=== PATIENT | female | born 1955 | race Caucasian/White ===

== ENCOUNTER 2023-01-26 06:35 | Observation (INO) ==
[2023-01-26 06:49] VITALS: BMI 37.2
--- NOTE | 2023-01-26 06:52 | EKG ---
Test Reason : Syncopy Blood Pressure : */* mmHG Vent. Rate : 54 BPM Atrial Rate : 54 BPM P-R Int : 206 ms QRS Dur : 84 ms QT Int : 478 ms P-R-T Axes : 51 59 60 degrees QTc Int : 453 ms Sinus bradycardia Nonspecific ST abnormality Abnormal ECG No previous ECGs available Confirmed by Guilherme John ([id number]) on 01/26/2023 8:00:39 AM Referred By: Confirmed By: Guilherme John
[2023-01-26 07:15] LABS: BASOPHILS % (AUTO) 0.6 % (0.2-1.0); EOSINOPHILS # (AUTO) 0.1 x10^3/uL (0.0-0.2); HEMATOCRIT 38.4 % (36.0-47.0); HEMOGLOBIN 13.3 g/dL (12.0-16.0); LYMPHOCYTES # (AUTO) 1.1 X10^3/uL (1.3-2.9); LYMPHOCYTES % (AUTO) 19.2 % (21.0-51.0); MEAN CORPUSCULAR HEMOGLOBIN 28.7 pg (27.0-34.0); MEAN CORPUSCULAR HGB CONC 34.6 g/dL (33.0-35.0); MEAN CORPUSCULAR VOLUME 83.2 fL (80.0-100.0); MEAN PLATELET VOLUME 7.8 fL (7.4-11.0); MONOCYTES # (AUTO) 0.4 x10^3/uL (0.3-0.8); MONOCYTES % (AUTO) 6.1 % (0.0-13.0); NEUTROPHILS # (AUTO) 4.3 x10^3/uL (2.2-4.8); NEUTROPHILS % (AUTO) 73.1 % (42.0-75.0); PLATELET COUNT 186 X10^3/uL (150.0-450.0); RED BLOOD COUNT 4.62 X10^6/uL (3.5-5.4); WHITE BLOOD COUNT 5.9 X10^3/uL (3.6-10.0)
[2023-01-26 07:25] LABS: ALBUMIN 3.3 g/dL (3.4-5.0); CALCIUM 8.7 mg/dL (8.5-10.1); CARBON DIOXIDE 25.1 mmol/L (21-32); COR CA(FOR HYPOALB) 9.3 mg/dL (8.5-10.1); CREATININE 1.42 mg/dL (0.55-1.02); POTASSIUM 3.8 mmol/L (3.5-5.1); TOTAL PROTEIN 6.8 g/dL (6.4-8.2)
--- NOTE | 2023-01-26 07:46 | DR.DIZZY ---
HPI Time seen Time Seen by Provider: 01/26/23 06:35 PCP Primary Care Physician: Mckenzie Overton Complaint Chief Complaint:: Pt states that this morning she woke up and sat up on the side of the bed and immediately felt dizzy and passed out. Pt woke up in the floor and rolled over and tried to sit up again and when sitting or moving her head from side to side she immediately felt dizzy again like she might pass out. Pt is noted to have a small abrasion to the side of the right eye. Denies any pain. COVID-19 Coronavirus risk:travel/contact w/high risk person: No Has patient experienced Coronavirus symptoms: No Nurses Notes Reviewed Nurses Notes Review: Yes Source History Provided: Patient Mode of Arrival Mode of Arrival: EMS Timing Onset of Chief Complaint: 01/26/23 Came on: Suddenly Symptom Onset: Known Duration How lon Duration: Minutes Location of Weakness Weakness Location: Generalized Context Onset: At rest Does pt take pot. toxic medication?: No History of: None Stroke Symptoms: None Associated signs and symptoms Associated Signs and Symptoms: Normal PMH PMH Past Medical History: Yes Past Medical History: Dyslipidemia and Hypertension Past Medical History Comment: afib, three leaky heart valves Past Surgical History: Yes Surgical History: Cholecystectomy, Hysterectomy and Joint Replacement Past Surgical History Comment: left tka, cyst removed from right breast x 4 Family History History of Family Medical Conditions: Yes Family Medical History: Diabetes Mellitus, Cancer, [place], Coronary Artery Disease and Hypertension Social History Does patient currently use any type of tobacco product: No Have you used tobacco products in the last 12 months: No Type of Tobacco Use: None Does any household member use tobacco: No Alcohol Use: None Do you use any recreational Drugs:: No Lives With: Spouse Lives Where: Home Travel Risk Coronavirus risk:travel/contact w/high risk person: No Has patient experienced Coronavirus symptoms: No Infectious screening In the last 2 months have you had wt loss of >10#?: NO Have you had fever, night sweats or hemotysis?: No Have you traveled outside the country in the last 6 months?: No Isolation: Standard ROS Review of Systems Neurological: See HPI PE Vital Signs Vitals: Vital Signs Temperature 97.7 F Pulse Rate [Sitting] 55 Pulse Rate [Lying] 52 Pulse Rate 56 Pulse Rate 54 Pulse Rate 51 Pulse Rate 51 Pulse Rate 50 Pulse Rate 52 Pulse Rate 54 Respiratory Rate 26 Respiratory Rate 7 Respiratory Rate 22 Respiratory Rate 22 Respiratory Rate 27 Respiratory Rate 23 Respiratory Rate 20 Blood Pressure [Sitting] 198/93 Blood Pressure [Lying] 165/77 Blood Pressure 198/93 Blood Pressure 165/77 Blood Pressure 160/74 Blood Pressure 194/81 O2 Sat by Pulse Oximetry 100 O2 Sat by Pulse Oximetry 99 O2 Sat by Pulse Oximetry 98 O2 Sat by Pulse Oximetry 96 O2 Sat by Pulse Oximetry 98 O2 Sat by Pulse Oximetry 97 O2 Sat by Pulse Oximetry 99 O2 Sat by Pulse Oximetry 100 General Limitations: No Limitations General Appearance: Alert and In No Apparent Distress Head Head Exam: Normocephalic and Other Eyes Eye exam: Normal Appearance, PERRL and EOMI ENT ENT Exam: Normal Exam, Normal Oropharynx and Normal External Ear Exam Neck Neck Exam: Normal Inspection, Full ROM and Trachea Midline Chest Chest Inspection: Normal Inspection Respiratory Respiratory Exam: Normal Lung Sounds Bilat Cardiovascular Cardiovascular Exam: Regular Rate and Bradycardia Abdominal Exam Abdominal Exam: Normal Inspection, Normal Bowel Sounds and Soft Rectal Rectal Exam: Deferred Extremeties Extremities Exam: Normal Inspection and Full ROM Back Back Exam: Normal Inspection and Full ROM Neurologic Neurological Exam: Alert, Oriented X3, CN II-XII Intact and Reflexes Normal Patient Oriented To: Person, Place and Time Speech: Fluid Speech Psychiatric Psychiatric Exam: Normal Affect and Normal Mood Skin Skin Exam: Warm, Dry and Intact ROR Labs Reviewed 01/26/23 06:58 01/26/23 06:58 Laboratory: WBC 5.9 X10^3/uL (3.6-10.0) 01/26/23 06:58 RBC 4.62 X10^6/uL (3.5-5.4) 01/26/23 06:58 Hgb 13.3 g/dL (12.0-16.0) 01/26/23 06:58 Hct 38.4 % (36.0-47.0) 01/26/23 06:58 MCV 83.2 fL (80.0-100.0) 01/26/23 06:58 MCH 28.7 pg (27.0-34.0) 01/26/23 06:58 MCHC 34.6 g/dL (33.0-35.0) 01/26/23 06:58 RDW 14.0 % (11.6-16.5) 01/26/23 06:58 Plt Count 186 X10^3/uL (150.0-450.0) 01/26/23 06:58 MPV 7.8 fL (7.4-11.0) 01/26/23 06:58 Neut % (Auto) 73.1 % (42.0-75.0) 01/26/23 06:58 Lymph % (Auto) 19.2 % (21.0-51.0) L 01/26/23 06:58 [place] % (Auto) 6.1 % (0.0-13.0) 01/26/23 06:58 Eos % (Auto) 1.0 % (0.9-2.9) 01/26/23 06:58 Baso % (Auto) 0.6 % (0.2-1.0) 01/26/23 06:58 Neut # (Auto) 4.3 x10^3/uL (2.2-4.8) 01/26/23 06:58 Lymph # (Auto) 1.1 X10^3/uL (1.3-2.9) L 01/26/23 06:58 [place] # (Auto) 0.4 x10^3/uL (0.3-0.8) 01/26/23 06:58 Eos # (Auto) 0.1 x10^3/uL (0.0-0.2) 01/26/23 06:58 Baso # (Auto) 0.0 X10^3/uL (0.0-0.1) 01/26/23 06:58 Absolute Nucleated RBC 0.0 /100WBC 01/26/23 06:58 Sodium 142 mmol/L (136-145) 01/26/23 06:58 Corrected Sodium 142 mmol/L (136-145) 01/26/23 06:58 Potassium 3.8 mmol/L (3.5-5.1) 01/26/23 06:58 Chloride 106 mmol/L (98-107) 01/26/23 06:58 Carbon Dioxide 25.1 mmol/L (21-32) 01/26/23 06:58 BUN 29 mg/dL (7-18) H 01/26/23 06:58 Creatinine 1.42 mg/dL (0.55-1.02) H 01/26/23 06:58 Est GFR (MDRD) Af Amer 48 (>60) L 01/26/23 06:58 Est GFR (MDRD) Non-Af 39 (>60) L 01/26/23 06:58 Glucose 114 mg/dL (65-99) H 01/26/23 06:58 Calcium 8.7 mg/dL (8.5-10.1) 01/26/23 06:58 Corrected Calcium 9.3 mg/dL (8.5-10.1) 01/26/23 06:58 Total Bilirubin 0.40 mg/dL (0.2-1.0) 01/26/23 06:58 AST 17 Units/L (15-37) 01/26/23 06:58 ALT 28 Units/L (12-78) 01/26/23 06:58 Alkaline Phosphatase 103 Units/L (46-116) 01/26/23 06:58 Troponin I High Sens 9.9 ng/L (4.0-60.0) 01/26/23 06:58 Total Protein 6.8 g/dL (6.4-8.2) 01/26/23 06:58 Albumin 3.3 g/dL (3.4-5.0) L 01/26/23 06:58 Globulin 3.5 g/dL (2.5-4.5) 01/26/23 06:58 Albumin/Globulin Ratio 0.9 Ratio (1.1-2.1) L 01/26/23 06:58 Opioid Opioid Risk Tool Age (Jaime box if 16-45): No History of Preadolescent Sexual Abuse: No Total: 0 Total Score Risk Category: Low Risk Copyright: Ayden LITTLE predicting aberrant behaviors Discharge Plan Discharge Plan Patient Disposition: HOME, SELF-CARE Condition: Stable Prescriptions: No Action atorvastatin 10 mg tablet 10 mg PO QHS Qty: 30 0RF lisinopril-hydrochlorothiazide 10-12.5 mg tablet 1 tab PO QAM Qty: 30 0RF allopurinol 100 mg tablet 200 mg PO QDAY Qty: 60 0RF Hydrocodone-Acetaminophen [Lorcet Plus (D/C per FDA)] 1 TAB Tab 7.5 - 500 mg PO Q4H PRN (Reason: Pain) Qty: 20 0RF Rx Instructions: ONE TABLET EVERY 4 HOURS NEEDED FOR PAIN fenofibrate micronized 134 mg capsule 134 mg PO DAILY Qty: 14 0RF zinc 50 mg tablet 220 mg PO QID Qty: 14 0RF Rx Instructions: administer on empty stomach, at least 1 hour before or after meal(s) use one 220 mg tab thiamine HCl (vitamin B1) 100 mg tablet 100 mg PO DAILY Qty: 14 0RF Rx Instructions: please also provide pt aixa Vit d# 5,000 IU 1 po daily for 14 days minimum famotidine [Pepcid] 40 mg tablet 40 mg PO DAILY Qty: 14 0RF ondansetron HCl [Zofran] 4 mg tablet 4 mg PO Q6H PRNQty: 14 0RF Health Concerns: Post Hospitalization: new medications and changes needed to prevent readmission or further decline. Pt educated and given instructions on all concerns. Plan of Treatment: Continue with present treatment and follow up plan. Pt is to keep follow up appointment as instructed and take medications as ordered. Follow ups/Referrals Follow ups/Referrals: Mckenzie Overton [Primary Care Provider] - 3 days Instructions Stand Alone Forms: Post Hospital Follow Up Care
[2023-01-26] MEDS ORDERED: CATAPRES TAB 0.2 MG ONE (07:51)
[2023-01-26] MEDS ORDERED: CATAPRES TAB 0.2 MG PO ONE (07:51)
--- NOTE | 2023-01-26 08:00 | CT ---
HISTORYDizziness, syncope, head injurySTUDYCT head without contrastTechnique: Axial noncontrast images with coronal and sagittal reformats. Dose reduction procedures were used with mA/kv adjusted for body size.COMPARISONNoneFINDINGSVentricles are normal in size shape and position. There is mild cortical atrophy present likely age related. There are no focal areas of abnormal attenuation to suggest recent or remote CVA, hemorrhage, contusion, mass lesion, or extra-axial fluid collection. The visualized sinuses are clear. The calvarium is intact.IMPRESSIONNo acute intracranial abnormality identifiedMild cortical atrophy likely age relatedElectronically signed by: EVON HOOVER (Jan 26, 2023 07:58:24)
--- NOTE | 2023-01-26 08:04 | RAD ---
EXAM:CHEST, 1 VIEWHISTORY:syncopeCOMPARISON:08/22/2021 FINDINGS:The cardiomediastinal silhouette is stable.No acute airspace disease. No pneumothorax or effusion.No acute osseous abnormality.IMPRESSION:No acute cardiopulmonary disease.THIS IS AN ELECTRONICALLY VERIFIED FINAL REPORT01/26/2023 8:01 AM - Electronically signed by Tai Schmitz MD
[2023-01-26] MEDS ORDERED: ANTIVERT TAB 25 MG ONE (08:08)
[2023-01-26] MEDS ORDERED: ANTIVERT TAB 25 MG PO ONE (08:08)
[2023-01-26 08:17] LABS: BILIRUBIN,URINE NEGATIVE (NEGATIVE); BLOOD/HEMOGLOBIN,URINE NEGATIVE (NEGATIVE); GLUCOSE, URINE NEGATIVE (NEGATIVE); KETONES,URINE NEGATIVE (NEGATIVE); LEUKOCYTE ESTERASE ,URINE NEGATIVE (NEGATIVE); NITRITES,URINE NEGATIVE (NEGATIVE); PROTEIN,URINE NEGATIVE (NEGATIVE); UROBILINOGEN,URINE NORMAL (NORMAL)
[2023-01-26 08:18] LABS: APPEARANCE,URINE CLEAR (CLEAR); COLOR,URINE YELLOW (YELLOW)
[2023-01-26] MEDS ORDERED: NS 1,000 ML IV 1,000 ML ONE (08:31)
[2023-01-26] MEDS: NS 1,000 ML IV 1,000 ML IV SCH ×2 (08:44→20:25)
--- NOTE | 2023-01-26 09:45 | DR.DIZZY ---
HPI Time seen Time Seen by Provider: 01/26/23 06:35 PCP Primary Care Physician: Mckenzie Overton Complaint Chief Complaint:: Pt states that this morning she woke up and sat up on the side of the bed and immediately felt dizzy and passed out. Pt woke up in the floor and rolled over and tried to sit up again and when sitting or moving her head from side to side she immediately felt dizzy again like she might pass out. Pt is noted to have a small abrasion to the side of the right eye. Denies any pain. COVID-19 Coronavirus risk:travel/contact w/high risk person: No Has patient experienced Coronavirus symptoms: No Nurses Notes Reviewed Nurses Notes Review: Yes Source History Provided: Patient Mode of Arrival Mode of Arrival: EMS Timing Onset of Chief Complaint: 01/26/23 Symptom Onset: Known Location of Weakness Weakness Location: Generalized Context History of: None Associated signs and symptoms Associated Signs and Symptoms: Normal PMH PMH Past Medical History: Yes Past Medical History: Dyslipidemia and Hypertension Past Medical History Comment: afib, three leaky heart valves Past Surgical History: Yes Surgical History: Cholecystectomy, Hysterectomy and Joint Replacement Past Surgical History Comment: left tka, cyst removed from right breast x 4 Family History History of Family Medical Conditions: Yes Family Medical History: Diabetes Mellitus, Cancer, [place], Coronary Artery Disease and Hypertension Social History Does patient currently use any type of tobacco product: No Have you used tobacco products in the last 12 months: No Type of Tobacco Use: None Does any household member use tobacco: No Alcohol Use: None Do you use any recreational Drugs:: No Lives With: Spouse Lives Where: Home Travel Risk Coronavirus risk:travel/contact w/high risk person: No Has patient experienced Coronavirus symptoms: No Infectious screening In the last 2 months have you had wt loss of >10#?: NO Have you had fever, night sweats or hemotysis?: No Have you traveled outside the country in the last 6 months?: No Isolation: Standard PE Vital Signs Vitals: Vital Signs Temperature 97.7 F Pulse Rate [Sitting] 55 Pulse Rate [Lying] 52 Pulse Rate 43 Pulse Rate 42 Pulse Rate 42 Pulse Rate 43 Pulse Rate 42 Pulse Rate 43 Pulse Rate 43 Pulse Rate 44 Pulse Rate 46 Pulse Rate 46 Pulse Rate 48 Pulse Rate 48 Pulse Rate 50 Pulse Rate 49 Pulse Rate 49 Pulse Rate 49 Pulse Rate 50 Pulse Rate 47 Pulse Rate 47 Pulse Rate 48 Pulse Rate 49 Pulse Rate 52 Pulse Rate 51 Pulse Rate 56 Pulse Rate 54 Pulse Rate 51 Pulse Rate 51 Pulse Rate 50 Pulse Rate 52 Pulse Rate 54 Respiratory Rate 18 Respiratory Rate 12 Respiratory Rate 21 Respiratory Rate 15 Respiratory Rate 11 Respiratory Rate 13 Respiratory Rate 12 Respiratory Rate 14 Respiratory Rate 11 Respiratory Rate 13 Respiratory Rate 23 Respiratory Rate 18 Respiratory Rate 16 Respiratory Rate 26 Respiratory Rate 7 Respiratory Rate 22 Respiratory Rate 22 Respiratory Rate 27 Respiratory Rate 23 Respiratory Rate 20 Blood Pressure [Sitting] 198/93 Blood Pressure [Lying] 165/77 Blood Pressure 134/66 Blood Pressure 142/66 Blood Pressure 142/66 Blood Pressure 136/65 Blood Pressure 136/65 Blood Pressure 136/67 Blood Pressure 136/67 Blood Pressure 119/64 Blood Pressure 121/59 Blood Pressure 160/67 Blood Pressure 171/75 Blood Pressure 172/76 Blood Pressure 192/86 Blood Pressure 198/93 Blood Pressure 165/77 Blood Pressure 160/74 Blood Pressure 194/81 O2 Sat by Pulse Oximetry 97 O2 Sat by Pulse Oximetry 98 O2 Sat by Pulse Oximetry 98 O2 Sat by Pulse Oximetry 98 O2 Sat by Pulse Oximetry 99 O2 Sat by Pulse Oximetry 97 O2 Sat by Pulse Oximetry 97 O2 Sat by Pulse Oximetry 98 O2 Sat by Pulse Oximetry 98 O2 Sat by Pulse Oximetry 98 O2 Sat by Pulse Oximetry 97 O2 Sat by Pulse Oximetry 100 O2 Sat by Pulse Oximetry 94 O2 Sat by Pulse Oximetry 96 O2 Sat by Pulse Oximetry 99 O2 Sat by Pulse Oximetry 98 O2 Sat by Pulse Oximetry 100 O2 Sat by Pulse Oximetry 99 O2 Sat by Pulse Oximetry 100 O2 Sat by Pulse Oximetry 97 O2 Sat by Pulse Oximetry 100 O2 Sat by Pulse Oximetry 97 O2 Sat by Pulse Oximetry 96 O2 Sat by Pulse Oximetry 100 O2 Sat by Pulse Oximetry 99 O2 Sat by Pulse Oximetry 98 O2 Sat by Pulse Oximetry 96 O2 Sat by Pulse Oximetry 98 O2 Sat by Pulse Oximetry 97 O2 Sat by Pulse Oximetry 99 O2 Sat by Pulse Oximetry 100 ROR Labs Reviewed 01/26/23 06:58 01/26/23 06:58 Laboratory: WBC 5.9 X10^3/uL (3.6-10.0) 01/26/23 06:58 RBC 4.62 X10^6/uL (3.5-5.4) 01/26/23 06:58 Hgb 13.3 g/dL (12.0-16.0) 01/26/23 06:58 Hct 38.4 % (36.0-47.0) 01/26/23 06:58 MCV 83.2 fL (80.0-100.0) 01/26/23 06:58 MCH 28.7 pg (27.0-34.0) 01/26/23 06:58 MCHC 34.6 g/dL (33.0-35.0) 01/26/23 06:58 RDW 14.0 % (11.6-16.5) 01/26/23 06:58 Plt Count 186 X10^3/uL (150.0-450.0) 01/26/23 06:58 MPV 7.8 fL (7.4-11.0) 01/26/23 06:58 Neut % (Auto) 73.1 % (42.0-75.0) 01/26/23 06:58 Lymph % (Auto) 19.2 % (21.0-51.0) L 01/26/23 06:58 [place] % (Auto) 6.1 % (0.0-13.0) 01/26/23 06:58 Eos % (Auto) 1.0 % (0.9-2.9) 01/26/23 06:58 Baso % (Auto) 0.6 % (0.2-1.0) 01/26/23 06:58 Neut # (Auto) 4.3 x10^3/uL (2.2-4.8) 01/26/23 06:58 Lymph # (Auto) 1.1 X10^3/uL (1.3-2.9) L 01/26/23 06:58 [place] # (Auto) 0.4 x10^3/uL (0.3-0.8) 01/26/23 06:58 Eos # (Auto) 0.1 x10^3/uL (0.0-0.2) 01/26/23 06:58 Baso # (Auto) 0.0 X10^3/uL (0.0-0.1) 01/26/23 06:58 Absolute Nucleated RBC 0.0 /100WBC 01/26/23 06:58 Sodium 142 mmol/L (136-145) 01/26/23 06:58 Corrected Sodium 142 mmol/L (136-145) 01/26/23 06:58 Potassium 3.8 mmol/L (3.5-5.1) 01/26/23 06:58 Chloride 106 mmol/L (98-107) 01/26/23 06:58 Carbon Dioxide 25.1 mmol/L (21-32) 01/26/23 06:58 BUN 29 mg/dL (7-18) H 01/26/23 06:58 Creatinine 1.42 mg/dL (0.55-1.02) H 01/26/23 06:58 Est GFR (MDRD) Af Amer 48 (>60) L 01/26/23 06:58 Est GFR (MDRD) Non-Af 39 (>60) L 01/26/23 06:58 Glucose 114 mg/dL (65-99) H 01/26/23 06:58 Calcium 8.7 mg/dL (8.5-10.1) 01/26/23 06:58 Corrected Calcium 9.3 mg/dL (8.5-10.1) 01/26/23 06:58 Total Bilirubin 0.40 mg/dL (0.2-1.0) 01/26/23 06:58 AST 17 Units/L (15-37) 01/26/23 06:58 ALT 28 Units/L (12-78) 01/26/23 06:58 Alkaline Phosphatase 103 Units/L (46-116) 01/26/23 06:58 Troponin I High Sens 14.8 ng/L (4.0-60.0) 01/26/23 08:45 Total Protein 6.8 g/dL (6.4-8.2) 01/26/23 06:58 Albumin 3.3 g/dL (3.4-5.0) L 01/26/23 06:58 Globulin 3.5 g/dL (2.5-4.5) 01/26/23 06:58 Albumin/Globulin Ratio 0.9 Ratio (1.1-2.1) L 01/26/23 06:58 Specimen Type Catherized urine 01/26/23 07:55 Urine Color Yellow (YELLOW) 01/26/23 07:55 Urine Appearance Clear (CLEAR) 01/26/23 07:55 Urine pH 6.0 (5.0 - 8.0) 01/26/23 07:55 Ur Specific [place] 1.015 (1.000-1.030) 01/26/23 07:55 Urine Protein Negative (NEGATIVE) 01/26/23 07:55 Urine Glucose (UA) Negative (NEGATIVE) 01/26/23 07:55 Urine Ketones Negative (NEGATIVE) 01/26/23 07:55 Urine Blood Negative (NEGATIVE) 01/26/23 07:55 Urine Nitrite Negative (NEGATIVE) 01/26/23 07:55 Urine Bilirubin Negative (NEGATIVE) 01/26/23 07:55 Urine Urobilinogen Normal (NORMAL) 01/26/23 07:55 Ur Leukocyte Esterase Negative (NEGATIVE) 01/26/23 07:55 Opioid Opioid Risk Tool Age (Jaime box if 16-45): No History of Preadolescent Sexual Abuse: No Total: 0 Total Score Risk Category: Low Risk Copyright: Ayden LITTLE predicting aberrant behaviors Discharge Plan Diagnosis Discharge Problem: Syncope, Ataxia Discharge Plan Patient Disposition: ADMITTED INPATIENT Condition: Stable Orders to Discharge Patient Discharge Orders: Transfer (Routine); Ordered 01/26/23 Ordered By: MADELYN MANZO
[2023-01-26] MEDS ORDERED: ADACEL or BOOSTRIX TDaP VACCINE IM ONE ×2 (09:57→09:58)
--- NOTE | 2023-01-26 11:28 | MRI ---
HISTORYsyncopeSTUDYBRAIN W/O CONCOMPARISONCT same dayTECHNIQUEMultiplanar multi-sequence MRI of the brain was obtained utilizing standard departmental protocol. Sagittal and axial T1 weighted images were obtained. Axial T2 and flair weighted images were performed as well. Axial diffusion weighted and ADC trace mapping was performed.FINDINGSThe midline structures appear unremarkable. The evaluation of the brain parenchyma demonstrates no abnormal signal characteristics to suggest intraparenchymal mass or hemorrhage. No extra-axial fluid collections are observed. The ventricular system appears symmetric and nondilated. The CP angle is normal in its appearance without brainstem mass or evidence for acoustic neuroma. The flow voids on both T1 and T2 weighted imaging appear unremarkable. Evaluation of the diffusion weighted imaging does not demonstrate abnormal signal characteristics to suggest acute ischemic change. The extracranial structures are unremarkable.IMPRESSIONUnremarkable MRI of the brain without contrast.Electronically signed by: DARREN MONTANA (Jan 26, 2023 11:19:16)
[2023-01-26] MEDS ORDERED: ANTIVERT TAB 25 MG PO PRN (13:27)
[2023-01-26] MEDS: CORDARONE TAB 200 MG PO SCH (14:14)
[2023-01-26] MEDS: ELIQUIS PO SCH (20:24)
[2023-01-26] MEDS ORDERED: LIPITOR TAB 10 MG PO SCH (21:00)
[2023-01-27] MEDS: NS 1,000 ML IV 1,000 ML IV SCH ×2 (05:07→09:00)
[2023-01-27 05:24] LABS: BASOPHILS % (AUTO) 0.7 % (0.2-1.0); EOSINOPHILS # (AUTO) 0.1 x10^3/uL (0.0-0.2); EOSINOPHILS % (AUTO) 0.7 % (0.9-2.9); HEMATOCRIT 35.6 % (36.0-47.0); HEMOGLOBIN 12.4 g/dL (12.0-16.0); LYMPHOCYTES % (AUTO) 13.8 % (21.0-51.0); MEAN CORPUSCULAR HEMOGLOBIN 29.1 pg (27.0-34.0); MEAN CORPUSCULAR HGB CONC 34.9 g/dL (33.0-35.0); MEAN CORPUSCULAR VOLUME 83.3 fL (80.0-100.0); MEAN PLATELET VOLUME 7.9 fL (7.4-11.0); MONOCYTES # (AUTO) 0.4 x10^3/uL (0.3-0.8); MONOCYTES % (AUTO) 6.3 % (0.0-13.0); NEUTROPHILS # (AUTO) 5.5 x10^3/uL (2.2-4.8); NEUTROPHILS % (AUTO) 78.5 % (42.0-75.0); PLATELET COUNT 205 X10^3/uL (150.0-450.0); RED BLOOD COUNT 4.27 X10^6/uL (3.5-5.4); RED CELL DISTRIBUTION WIDTH 13.7 % (11.6-16.5)
[2023-01-27 05:25] LABS: INR 1.11 (0.8-1.3)
[2023-01-27 05:36] LABS: ALANINE AMINOTRANSFERASE 23 Units/L (12-78); ALKALINE PHOSPHATASE 87 Units/L (46-116); ASPARTATE AMINO TRANSFERASE 16 Units/L (15-37); BLOOD UREA NITROGEN 24 mg/dL (7-18); CALCIUM 8.3 mg/dL (8.5-10.1); CARBON DIOXIDE 27.9 mmol/L (21-32); CHLORIDE 108 mmol/L (98-107); COR CA(FOR HYPOALB) 9.1 mg/dL (8.5-10.1); CREATININE 1.15 mg/dL (0.55-1.02); GLUCOSE 100 mg/dL (65-99); MAGNESIUM 1.9 mg/dL (2.0-2.9); SODIUM 144 mmol/L (136-145); eGFR NON BLACK RACES 50 (>60)
[2023-01-27] MEDS: ELIQUIS PO SCH (08:52)
[2023-01-27] MEDS: CORDARONE TAB 200 MG PO SCH (08:53)
[2023-01-27] MEDS ORDERED: ZYLOPRIM PO SCH (09:00)
[2023-01-27] MEDS ORDERED: ZESTORETIC 10/ 12.5MG PO SCH (09:00)
[2023-01-27 09:17] VITALS: RESP 20
[2023-01-27] MEDS ORDERED: MAG-OX TAB PO SCH (10:00)
[2023-01-27 13:18] VITALS: BP 120/58; PULSE 45; TEMP 97.8; O2SAT 99
--- NOTE | 2023-01-28 13:53 | DR.SSS ---
SHORT STAY SUMMARY Admission Date Date of Admission: 01/26/23 Discharge Date Discharge Date: 01/27/23 Admission Diagnoses Admission Diagnoses: Vertigo Discharge Diagnoses Discharge Diagnoses: Vertigo Chief Complaint Chief Complaint: Vertigo, imbalance Dizziness, lightheaded History of Present Illness History of Present Illness: Pt presenting with vertigo, dizziness, lightheadedness that occurred acutely on day of admission and caused her to have balance problems. Past Medical History Past Medical History: Dyslipidemia and Hypertension Past Surgical History Surgical History: Cholecystectomy, Hysterectomy and Joint Replacement Allergies Allergies Allergy/AdvReac Type Severity Reaction Status Date / Time No Known Drug Allergies Allergy Unknown Verified 01/26/23 07:44 Medications Home Medications: No Known Drug Allergies Allergy (Unknown, Verified 01/26/23 07:44) CONTINUE taking the following medications amiodarone 200 mg tablet 200 mg PO QDAY 01/26/23 [History] apixaban 5 mg tablet (Eliquis) 5 mg PO BID 01/26/23 [History] New Prescriptions meclizine 25 mg tablet 25 mg PO TID PRN 10 days #30 tabs 01/27/23 [Rx] Family History Family Medical History: Diabetes Mellitus, Cancer, NM, Coronary Artery Disease and Hypertension Social History Does patient currently use any type of tobacco product: No Have you used tobacco products in the last 12 months: No Type of Tobacco Use: None Does any household member use tobacco: No Alcohol Use: None Drug Use: None Review of Systems Constitutional: Weakness Eyes: No Symptoms Reported ENT: No Symptoms Reported Respiratory: No Symptoms Reported Cardiovascular: No Symptoms Reported Gastrointestinal: No Symptoms Reported Genitourinary: No Symptoms Reported Musculoskeletal: No Symptoms Reported Skin: No Symptoms Reported Neurological: Other Physical Exam Vital Signs: Last Vital Signs Temp 98.1 F 01/27/23 08:00 Pulse 43 L 01/27/23 08:00 Resp 20 01/27/23 08:00 BP 135/63 01/27/23 08:00 Pulse Ox 100 01/27/23 08:00 O2 Del Method Room Air 01/27/23 08:00 Oriented: Normal Eyes: Normal Ear: Normal Nose: Normal Throat: Normal Respiratory: Clear Throughout Cardiovascular: Normal Auscultation: Bowel Sounds: Normal Palpation: Normal Tenderness: Normal Skin: Normal Musculoskeletal: Normal Psychiatric: Normal Mood Description: Calm Speech Pattern: Clear Labs Labs: Laboratory Last Values WBC 7.0 X10^3/uL (3.6-10.0) 01/27/23 04:36 RBC 4.27 X10^6/uL (3.5-5.4) 01/27/23 04:36 Hgb 12.4 g/dL (12.0-16.0) 01/27/23 04:36 Hct 35.6 % (36.0-47.0) L 01/27/23 04:36 MCV 83.3 fL (80.0-100.0) 01/27/23 04:36 MCH 29.1 pg (27.0-34.0) 01/27/23 04:36 MCHC 34.9 g/dL (33.0-35.0) 01/27/23 04:36 RDW 13.7 % (11.6-16.5) 01/27/23 04:36 Plt Count 205 X10^3/uL (150.0-450.0) 01/27/23 04:36 MPV 7.9 fL (7.4-11.0) 01/27/23 04:36 Neut % (Auto) 78.5 % (42.0-75.0) H 01/27/23 04:36 Lymph % (Auto) 13.8 % (21.0-51.0) L 01/27/23 04:36 [place]er % (Auto) 6.3 % (0.0-13.0) 01/27/23 04:36 Eos % (Auto) 0.7 % (0.9-2.9) L 01/27/23 04:36 Baso % (Auto) 0.7 % (0.2-1.0) 01/27/23 04:36 Neut # (Auto) 5.5 x10^3/uL (2.2-4.8) H 01/27/23 04:36 Lymph # (Auto) 1.0 X10^3/uL (1.3-2.9) L 01/27/23 04:36 Miner # (Auto) 0.4 x10^3/uL (0.3-0.8) 01/27/23 04:36 Eos # (Auto) 0.1 x10^3/uL (0.0-0.2) 01/27/23 04:36 Baso # (Auto) 0.0 X10^3/uL (0.0-0.1) 01/27/23 04:36 Absolute Nucleated RBC 0.0 /100WBC 01/27/23 04:36 PT 14.1 SECONDS (11.8-14.3) 01/27/23 04:36 INR Target Range - 01/27/23 04:36 INR 1.11 (0.8-1.3) 01/27/23 04:36 APTT 30.1 SECONDS (22.9-36.5) 01/27/23 04:36 PTT Comment - 01/27/23 04:36 Sodium 144 mmol/L (136-145) 01/27/23 04:36 Corrected Sodium TNP 01/27/23 04:36 Potassium 4.0 mmol/L (3.5-5.1) 01/27/23 04:36 Chloride 108 mmol/L (98-107) H 01/27/23 04:36 Carbon Dioxide 27.9 mmol/L (21-32) 01/27/23 04:36 BUN 24 mg/dL (7-18) H 01/27/23 04:36 Creatinine 1.15 mg/dL (0.55-1.02) H 01/27/23 04:36 Est GFR (MDRD) Af Amer > 60 (>60) 01/27/23 04:36 Est GFR (MDRD) Non-Af 50 (>60) L 01/27/23 04:36 Glucose 100 mg/dL (65-99) H 01/27/23 04:36 Calcium 8.3 mg/dL (8.5-10.1) L 01/27/23 04:36 Corrected Calcium 9.1 mg/dL (8.5-10.1) 01/27/23 04:36 Magnesium 1.9 mg/dL (2.0-2.9) L 01/27/23 04:36 Total Bilirubin 0.40 mg/dL (0.2-1.0) 01/27/23 04:36 AST 16 Units/L (15-37) 01/27/23 04:36 ALT 23 Units/L (12-78) 01/27/23 04:36 Alkaline Phosphatase 87 Units/L (46-116) 01/27/23 04:36 Troponin I High Sens 14.8 ng/L (4.0-60.0) 01/26/23 08:45 Total Protein 6.0 g/dL (6.4-8.2) L 01/27/23 04:36 Albumin 3.0 g/dL (3.4-5.0) L 01/27/23 04:36 Globulin 3.0 g/dL (2.5-4.5) 01/27/23 04:36 Albumin/Globulin Ratio 1.0 Ratio (1.1-2.1) L 01/27/23 04:36 Specimen Type Catherized urine 01/26/23 07:55 Urine Color Yellow (YELLOW) 01/26/23 07:55 Urine Appearance Clear (CLEAR) 01/26/23 07:55 Urine pH 6.0 (5.0 - 8.0) 01/26/23 07:55 Ur Specific [place] 1.015 (1.000-1.030) 01/26/23 07:55 Urine Protein Negative (NEGATIVE) 01/26/23 07:55 Urine Glucose (UA) Negative (NEGATIVE) 01/26/23 07:55 Urine Ketones Negative (NEGATIVE) 01/26/23 07:55 Urine Blood Negative (NEGATIVE) 01/26/23 07:55 Urine Nitrite Negative (NEGATIVE) 01/26/23 07:55 Urine Bilirubin Negative (NEGATIVE) 01/26/23 07:55 Urine Urobilinogen Normal (NORMAL) 01/26/23 07:55 Ur Leukocyte Esterase Negative (NEGATIVE) 01/26/23 07:55 Assessment/Plan (1) Vertigo: (2) Ataxia: (3) Imbalance: Hospital Course Hospital Course: Pt was admitted for observation for severe vertigo. Labs/imaging: Wbc 7, Hgb 12.4, Plt 205, Na 144, K 4, Creatinine 1.15, Glucose 100, Brain CT No acute intracranial abnormality identified. Mild cortical atrophy likely age related. CXR:No acute cardiopulmonary disease. Brain MRI was obtained that revealed: Unremarkable MRI of the brain without contrast. Pt was given meclizine that helped with symptoms. Symptoms significantly improved. Workup unremarkable. Pt was discharged in stable conditon. Rx meclizine. Instructed to follow up with pcp in 1 week. Discharge Medications Discharge Medications: Home Medication List amiodarone 200 mg tablet 200 mg PO QDAY 09/11/23 [History] apixaban 5 mg tablet (Eliquis) 5 mg PO BID 01/26/23 [History] meclizine 25 mg tablet 25 mg PO TID PRN 10 days #30 tabs 01/27/23 [Rx] Prescriptions: Bola Stone Discharge Disposition Discharge Disposition: Home Discharge Plan Discharge Plan Patient Disposition: 01 HOME, SELF-CARE Condition: Stable Health Concerns: Post Hospitalization: new medications and changes needed to prevent readmission or further decline. Pt educated and given instructions on all concerns. Care Plan Goals: Problem: Pain/Alteration in Comfort Goal: Improve/ Resolve Pain; Achieve Pain Tolerance Instructions: Take pain medications as prescribed. Contact your primary care provider if your pain is unrelieved or worsens. Follow up with primary care provider as directed. Plan of Treatment: Continue with present treatment and follow up plan. Pt is to keep follow up appointment as instructed and take medications as ordered. Prescriptions: New meclizine 25 mg Tablet 25 mg PO TID PRN10 Days Qty: 30 0RF Continued atorvastatin 10 mg tablet 10 mg PO QHS Qty: 30 0RF lisinopril-hydrochlorothiazide 10-12.5 mg tablet 1 tab PO QAM Qty: 30 0RF allopurinol 100 mg tablet 200 mg PO QDAY Qty: 60 0RF amiodarone 200 mg tablet 200 mg PO QDAY Eliquis 5 mg tablet 5 mg PO BID Orders to Discharge Patient Discharge Orders: Discharge (Routine); Ordered 01/27/23 Ordered By: Bola Bull Follow ups/Referrals Follow ups/Referrals: Mckenzie Overton [Primary Care Provider] - 02/03/23 11:00 am Instructions Instructions: Near-Syncope, [id number], Syncope, Adult, [id number] Stand Alone Forms: Excuse From Work or School, Post Hospital Follow Up Care
== END 2023-01-27 13:55 | disposition home or self-care (01) ==
LOC: ER 06:35 → MED/SURG 06:35
PROVIDERS: ADMIT Family Medicine; ATTEND Family Medicine
DX: E83.42 Hypomagnesemia; W06.XXXA Fall from bed, initial encounter; I10 Essential (primary) hypertension; E78.2 Mixed hyperlipidemia; R55 Syncope and collapse; R42 Dizziness and giddiness; S00.211A Abrasion of right eyelid and periocular area, initial encounter; R94.31 Abnormal electrocardiogram [ECG] [EKG]; Y92.003 Bedroom of unspecified non-institutional (private) residence as the place of occurrence of the external cause; R51.9 Headache, unspecified; R26.89 Other abnormalities of gait and mobility